=== PATIENT | female | born 1980 | race Two or more races ===

== ENCOUNTER 2020-06-14 21:49 | Emergency (ER) | payer MEDICAID ==
[~2020-06-14] VITALS: Ht 157.5 cm; Wt 81.6 kg
[~2020-06-14 21:49] MED LIST: AZITHROMYCIN250 MG ORAL; CLARITIN10 MG ORAL; PROMETHAZINE-C118 M1 ORAL
--- NOTE | 2020-06-14 22:33 | Emergency Room Report ---
History of Present Illness General Chief Complaint: Edema Source: Patient Present Illness HPI 39-year-old female with no past medical history presents with right facial swelling x3 days. She denies any new dietary changes, make-ups, detergents, soaps, or recent travel. She has experienced similar symptoms before secondary to an allergy. Her last menstrual period was May 11. She states that she has not been sexually active and denies risk of . Denies chest pain, stridor, drooling, shortness of breath, wheezing, nausea, vomiting, rash or any other symptoms. The patient's symptoms were gradual onset, severity was moderate, duration since 3 days. Quality: Mildly swollen Past medical history: Denies Past surgical history: Denies Smoking: Denies Alcohol use: Denies Drug use: Denies Review of systems: CONST: No fevers or chills, No night sweats PULMONARY: No productive cough, No shortness of breath CARDIAC: No chest pain, No palpitations GI: No vomiting, No diarrhea , No melena_or_BRBPR : No dysuria, No hematuria, No discharge NEURO: No new_focal_weakness_or_numbness, No confusion, No vision changes 14 point Review of Systems is otherwise negative except per HPI Physical Exam: GENERAL: Awake_alert_ nontoxic, no acute distress Spo2 97% on RA -normal Trace amount of swelling to the right face in the V2 and V3 distribution. No periorbital edema. No proptosis. No submandibular swelling. EYES: Extraocular muscles are intact. Conjunctivae clear. Lids without swelling ENT: External nose and ear normal_in_appearance. Oropharynx clear. Head_atraumatic, Moist_oral_mucosa No hoarse voice, stridor, or drooling. Speaks in full and complete sentences. Is tolerating secretions. NECK: No JVD. No meningismus. No thyromegaly. Supple. Trachea midline RESP: Normal respiratory effort. Symmetric rise. No stridor. Clear_to_auscultation_No_rales_No_wheezes CARDIAC: Regular rate and regular rhytm. No_significant pedal edema. ABDOMEN: Soft. Nondistended. Nontender_No_rebound_or_guarding. MSK: Normal muscle tone, without rigidity. Extremities without asymmetric deformity or swelling. SKIN: Warm and dry. No visible cyanosis or pallor NEUROLOGIC: Alert, oriented x3. Motor_and_sensation_grossly_intact. No truncal ataxia. Gait_normal Psych: Normal mood and affect, normal judgment and insight - COORDINATION OF CARE Case was discussed with: Patient Medical Decision Making/Plan: Initial VSS stable. Airway is intact with no stridor, drooling, or increased WOB. No oral, tongue or lip swelling noted. Patient appears to be presenting with mild to moderate allergic reaction, there is no evidence of angioedema, no oral involvement, no difficulty breathing or nausea vomiting. No periapical abscess No Cecil angina. Patient is nontoxic and well-appearing the patient is tolerating fluids. The findings are minimal and due to nonprogression of symptoms here the patient is safe to discharge home. The patient feels comfortable with plan and will return immediately if symptoms begin to worsen. Patient given a dose of steroids and Benadryl here in the emergency department. Patient will be discharged with an EpiPen and pepcid Patient was instructed to avoid all potential allergic stimuli in the future The patient was instructed to avoid potential precipitating factor and to follow up with their regular physician for referral to [employer] school library media specialist for definitive allergy testing. Pertinent results reviewed with the patient. I educated the patient on the current treatment plan including the risks, benefits, and alternatives. I also discussed the extent and limitations of the current evaluation. The patient expressed understanding and agreement with plan. I recommended PMD follow-up within 1-2 days. Also advised that the patient return to the Emergency Department as soon as possible if they experience any new, persistent, or worsening symptoms. Allergies: Coded Allergies: No Known Allergies (Unverified , 07/23/13) COVID-19 Screening Contact w/high risk pt: No Experienced COVID-19 symptoms?: No COVID-19 Testing performed NEON SIGN MECHANIC: No Patient History Last Menstrual Period: 05/2020 Nursing Documentation-PMH Hx Hypertension: Yes Hx Seizures: Yes Physical Exam Vital Signs Date Time Temp Pulse Resp B/P (MAP) Pulse Ox O2 Delivery O2 Flow Rate FiO2 06/14/20 22:05 98.4 84 16 166/88 (114) 97 Room Air Sp02 EP Interpretation: reviewed, normal Medical Decision Making Diagnostic Impression: Primary Impression: Allergic reaction Additional Impression: Facial swelling Last Vital Signs Date Time Temp Pulse Resp B/P (MAP) Pulse Ox O2 Delivery O2 Flow Rate FiO2 06/14/20 22:05 98.4 84 16 166/88 (315) 97 Room Air Disposition: HOME, SELF-CARE Admit Decision Time: 23:30 Condition: Stable Scripts Famotidine (PEPCID AC) 10 Mg Tablet 10 MG PO QID for allergy for 7 Days, #28 TAB Prov: Zina Sylvester D.O. 06/14/20 Epinephrine (Epipen 2-Lam) 0.3 Mg/0.3 Ml Auto.injct 0.3 MG IM ONCE for anaphylaxis for 1 Day, #1 EA Prov: Zina Sylvester D.O. 06/14/20 Patient Instructions: Allergy Test, Edema, [id number] Additional Instructions: Instructions for patient/power plant operator: Follow up with your physician in 1-2 days for referral to an asphalt heater operator Follow-up with your doctor sooner if your condition requires a more timely clinical reevaluation. Return to the emergency department immediately if you feel that your condition is worsening or if you have any new or concerning symptoms. Review your discharge instructions and take any prescriptions given as instructed. [facility] PROVIDES FREE OR LOW-COST HEALTH SERVICES TO PEOPLE WHO CAN SHOW PROOF THAT THEY LIVE IN [facility]. TO FIND MORE CLINICS PARTNERED WITH THE [facility] TO PROVIDE SERVICE, PLEASE CALL . Zina Sylvester D.O. Jun 14, 2020 22:33
[2020-06-14] MEDS ORDERED: PEPCID AC10 MG PO (22:37)
[2020-06-14] MEDS ORDERED: EPIPEN 2-P0.3 MG/0.3 IM (22:37)
--- NOTE | 2020-06-14 22:40 | NUR ---
ED Nurse Note: Recieved pt from chair, seen by MD and discharged already, pt is awake, and oriented x 4, here with c/o bilat facial swelling, denies injury to area or any history, mild swelling noted bilat chin area, no tooth problems reported either.
[2020-06-14] MEDS ORDERED: DiphenhydrAMINE 25mg/10ml Elixir ORAL ONE (22:45)
[2020-06-14 23:05] VITALS: BP 166/88
--- NOTE | 2020-06-14 23:05 | NUR ---
ER DISCHARGE NOTE: Patient is cleared to be discharged per ERMD, pt is aox4, on room air, with stable vital signs. pt was given dc and prescription instructions, pt was able to verbalize understanding, pt id band removed without complications. pt is able to ambulate with steady gait. pt took all belongings.
== END 2020-06-14 23:05 | disposition home or self-care (01) ==
LOC: EMR 22:15
DX: T78.40XA Allergy, unspecified, initial encounter (principal); X58.XXXA Exposure to other specified factors, initial encounter; R60.9 Edema, unspecified; I10 Essential (primary) hypertension; G40.909 Epilepsy, unspecified, not intractable, without status epilepticus
CPT/HCPCS: J8540; Z7502; 99282